=== PATIENT | male | born 1950 | race African-American/Black ===

== ENCOUNTER 2016-08-15 10:52 | Emergency (ER) | payer BC ==
[~2016-08-15 10:52] MED LIST: *DENIES; ASAB PO; IBU-200200 MG PO; IMDUR30 PO; LIPITOR10 PO; LOP25 PO; NTG150 SL
== END 2016-08-15 14:05 | disposition home or self-care (01) ==
LOC: ER 10:52
DX: R20.9 Unspecified disturbances of skin sensation (principal); I10 Essential (primary) hypertension; F17.200 Nicotine dependence, unspecified, uncomplicated; Z95.5 Presence of coronary angioplasty implant and graft; Z88.8 Allergy status to other drugs, medicaments and biological substances; Z88.1 Allergy status to other antibiotic agents; Z79.82 Long term (current) use of aspirin; Z79.899 Other long term (current) drug therapy
CPT/HCPCS: 70450; 99284